=== PATIENT | male | born 1950 | race Caucasian/White ===

== ENCOUNTER 2017-04-12 20:16 | Emergency (ER) | payer MEDICARE, OTHER | END 2017-04-12 22:46 | disposition PTX | LOC: D.ER 20:16 → EDBD 20:16 → D.ER 22:46 | DX: I46.9 Cardiac arrest, cause unspecified (principal); I21.3 ST elevation (STEMI) myocardial infarction of unspecified site; I10 Essential (primary) hypertension ==